=== PATIENT | male | born 1965 | race Caucasian/White ===

== ENCOUNTER 2017-10-16 23:10 | Emergency (ER) | payer BC, OTHER ==
[~2017-10-16] VITALS: Ht 172.7 cm; Wt 83.0 kg
[~2017-10-16 23:10] MED LIST: ADVAIR 250-501 EACH INH; GUAIATUSSIN AC10 ML PO; PREDNISONE20 MG PO; PROAIR HFA8.5 GM IH; VENTOLIN HFA18 GM INH; ZITHROMAX250 MG PO
--- OUTSIDE RECORDS SUMMARY | 2017-10-16 23:27 | XMS ---
Demographics + + + | Address | [address] | | | [place] [address] | + + + | Preferred Language | Unknown | + + + | Marital Status | Unknown | + + + | Yazidi Affiliation | Unknown | + + + | Race | Unknown | + + + | Ethnic Group | Unknown | + + + Author + + + | Author | [facility] | + + + | Organization | [facility] | + + + | Address | [address] | | | [place] [address] | + + + | Phone | | + + + Care Team Providers + + + + | Care Embossing Press Operator Molded Goods Name | Role | Phone | + + + + Unavailable | Unavailable | + + + + PROBLEMS +---------+ + + +--------+ + + | Type | Condition | ICD9-CM | [id number] | Onset | Condition | SNOMED | | | | Code | Code | Dates | Status | Code | +---------+ + + +--------+ + + | Problem | Asthma | | J45.909 | | Active | [id number] | +---------+ + + +--------+ + + | Problem | ASTHMA NOS | 493.90 | | | Active | [id number] | +---------+ + + +--------+ + + ALLERGIES Unknown Allergies SOCIAL HISTORY No smoking Hx information available PLAN OF CARE VITAL SIGNS MEDICATIONS Unknown Medications RESULTS No Results PROCEDURES No Known procedures IMMUNIZATIONS No Known Immunizations"
[2017-10-16] MEDS ORDERED: CYCLOBENZAPRINE5 MG PO (23:32)
[2017-10-16] MEDS ORDERED: MONTELUKAST SOD10 MG PO (23:33)
[2017-10-16] MEDS ORDERED: IBUPROFEN800 MG PO (23:33)
[2017-10-17] MEDS ORDERED: NORCO 5-325 TA1 EACH PO (00:45)
== END 2017-10-17 00:54 | disposition home or self-care (01) ==
LOC: ED 23:10
DX: S22.31XA Fracture of one rib, right side, initial encounter for closed fracture (principal); J45.909 Unspecified asthma, uncomplicated; I10 Essential (primary) hypertension; W10.9XXA Fall (on) (from) unspecified stairs and steps, initial encounter; Z79.899 Other long term (current) drug therapy
CPT/HCPCS: 71020; 72070; 96372; 99283; J1170; J2270